=== PATIENT | male | born 1965 | race Caucasian/White ===

== ENCOUNTER 2016-10-10 18:13 | Emergency (ER) | payer BC ==
[~2016-10-10] VITALS: Ht 180.3 cm; Wt 78.2 kg
[~2016-10-10 18:13] MED LIST: FLEXERIL10 MG PO; FLOMAX0.4 MG PO; GLUCOPHAGE1000 MG PO; IBUPROFEN800 MG PO; MOTRIN600 MG PO; NAPROSYN500 MG PO; NORCO 5/3251 TABLET PO; PEN-VEE K,VEET500 MG PO; PERCOCET 10/1 TABLET PO; PERCOCET 5/31 TABLET PO; PRILOSEC40 MG PO; TRAMADOL HCL50 MG PO; ULTRAM50 MG PO; ZESTORETIC 20-1 EAC2 PO; ZOFRAN ODT4 MG PO
[2016-10-10 18:34] LABS: POINT-OF-CARE METER ID UU13113778
[2016-10-10 18:52] LABS: HEMATOCRIT 51.3 % (38.0-50.0); MCH 31.3 PG (29.0-34.0); MCHC 35.1 G/DL (30.0-36.0); MCV 89.2 FL (86-99); MEAN PLAT.VOLUME 10.7 uM^3 (9.0-12.4); PLATELET COUNT 304 K/uL (156-360); RBC DIS.WIDTH-CV 12.3 % (11.8-14.6); RBC DIS.WIDTH-SD 40.1 % (39-53); RED BLOOD COUNT 5.75 M/uL (4.00-5.50); WHITE BLOOD COUNT 14.2 K/uL (4.1-10.2)
[2016-10-10 19:01] LABS: CHLORIDE 99 mEq/L (99-109); SODIUM 141 mEq/L (136-147)
[2016-10-10 19:04] LABS: GLUCOSE 246 mg/dL (70-99)
[2016-10-10 19:05] LABS: ANION GAP 17 MEQ/L (2-14)
[2016-10-10 19:06] LABS: TOTAL BILIRUBIN 1.9 mg/dL (0.0-1.0)
[2016-10-10 19:07] LABS: ALKALINE PHOSPHATASE 107 IU/L (3-129); GFR ESTIMATE (CALCULATED) > 59 mL/min/
[2016-10-10 19:08] LABS: UREA NITROGEN (BUN) 23 mg/dL (9-23)
[2016-10-10 20:12] LABS: ADD MIUA? YES; BILIRUBIN NEGATIVE; BLOOD SMALL; COLOR YELLOW ((YELLOW)); GLUCOSE (STRIP) >=500; KETONES 80; LEUKOCYTES NEGATIVE; NITRITE NEGATIVE; PROTEIN (STRIP) 30; SPECIFIC GRAVITY 1.021 (1.000-1.030); UROBILINOGEN 0.2 MG/DL (0.2-1.0)
[2016-10-10 20:20] LABS: BACTERIA RARE /HPF; EPITHELIAL CELLS RARE /HPF; MUCUS 2+ /LPF; RED BLOOD CELLS 0-5 /HPF (0-5); UCUL ADDED? NO; WHITE BLOOD CELLS 0-5 /HPF (0-5)
[2016-10-10] MEDS ORDERED: ZOFRAN ODT4 MG PO (20:31)
[2016-10-10 21:01] VITALS: BP 151/94
== END 2016-10-10 21:02 | disposition home or self-care (01) ==
LOC: EME 18:13
PROVIDERS: Physician Assistant Medical
DX: E11.65 Type 2 diabetes mellitus with hyperglycemia (principal); R11.2 Nausea with vomiting, unspecified; E78.5 Hyperlipidemia, unspecified; I10 Essential (primary) hypertension; Z87.442 Personal history of urinary calculi; Z79.84 Long term (current) use of oral hypoglycemic drugs; K21.9 Gastro-esophageal reflux disease without esophagitis
CPT/HCPCS: 74000; 80053; 81003; 82948; 85027; 99281; 99284; J2405; J7030